=== PATIENT | male | born 1990 | race Caucasian/White ===

== ENCOUNTER 2020-05-30 19:03 | Outpatient (CLI) | payer MEDICAID | END 2020-05-30 19:04 | disposition EMS.NT | LOC: EMS 19:03 | DX: Z03.89 Encounter for observation for other suspected diseases and conditions ruled out (principal) ==

== ENCOUNTER 2021-07-18 01:20 | Emergency (ER) | payer MEDICAID ==
[2021-07-18] MEDS ORDERED: KETOROLAC 60 MG/2 ML VIAL IM STA (01:32)
--- NOTE | 2021-07-18 01:40 | ED Physician Documentation ---
History of Present Illness - Stated complaint Stated Complaint: LOW BACK PX - Chief complaint Chief Complaint: Back Pain - History obtained from History obtained from: Patient - Additonal information Additional information: The patient comes to the emergency department chief complaint of right low back pain that started yesterday. He states that he did not have an injury and has never had pain like this before, though he did tell nursing staff he has a history of kidney stones. Patient denies any hematuria. No fevers or dysuria. He states that it hurts more when he stands up. He rates his pain a 4 out of 10. Nothing really seems to make it better. 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 Review of Systems Ten Systems: 10 systems reviewed and negative Constitutional: reports: Reviewed and negative Eyes: reports: Reviewed and negative Ears: reports: Reviewed and negative Nose: reports: Reviewed and negative Throat: reports: Reviewed and negative Cardiac: reports: Reviewed and negative Respiratory: reports: Reviewed and negative GI: reports: Reviewed and negative : reports: Reviewed and negative Skin: reports: Reviewed and negative Musculoskeletal: reports: Back pain Neurologic: reports: Reviewed and negative Psychiatric: reports: Reviewed and negative Endocrine: reports: Reviewed and negative Immunocompromised: reports: Reviewed and negative PD PAST MEDICAL HISTORY - Past Surgical History Past Surgical History: Yes General: Cholecystectomy - Allergies Allergies/Adverse Reactions: Allergies Allergy/AdvReac Type Severity Reaction Status Date / Time No Known Drug Allergies Allergy Verified 09/11/15 13:25 - Social History Does the pt smoke?: Yes Smoking Status: Current every day smoker Does the pt drink ETOH?: No Does the pt have substance abuse?: Yes - POLST Patient has POLST: No PD ED PE NORMAL - Vitals Vital signs reviewed: Yes - General General: Alert and oriented X 3, No acute distress, Other (The patient is disheveled, but otherwise well-appearing.) - HEENT HEENT: Atraumatic, PERRL, EOMI, Moist mucous membranes - Neck Neck: Supple, no meningeal sign - Cardiac Cardiac: RRR, No murmur, Strong equal pulses - Respiratory Respiratory: No respiratory distress, Clear bilaterally - Abdomen Abdomen: Soft, Non tender, Non distended - Back Back: No CVA TTP, Other (Tender to palpation moderately over right lumbar paraspinal musculature.) - Derm Derm: Warm and dry, Other (Multiple scabs, consistent with picking) - Extremities Extremities: No deformity - Neuro Neuro: Alert and oriented X 3, Other (Grossly intact; patient does not appear under the influence of any drugs at this time.) - Psych Psych: Normal mood, Normal affect Results - Vitals Vitals: Vital Signs - 24 hr 07/18/21 07/18/21 01:27 02:04 Temperature 96.9 C H 36.8 C Heart Rate 99 72 Respiratory 14 18 Rate Blood Pressure 122/86 H 121/67 O2 Saturation 98 100 Oxygen O2 Source Room air PD MEDICAL DECISION MAKING - ED course Complexity details: reviewed results, re-evaluated patient, considered differential, d/w patient ED course: A urinalysis and CT abdomen pelvis without contrast were ordered for the patient; however, he decided he did not want to stay in the emergency department, and walked out.
[2021-07-18 02:06] VITALS: BP 121/67
[2021-07-18 04:25] LABS: BILIRUBIN,URINE NEGATIVE (NEGATIVE); GLUCOSE, URINE (UA) NEGATIVE (NEGATIVE); KETONES,URINE (UA) NEGATIVE (NEGATIVE); LEUKOCYTE ESTERASE, URINE NEGATIVE (NEGATIVE); NITRITE,URINE NEGATIVE (NEGATIVE); OCCULT BLOOD,URINE MODERATE (NEGATIVE); PROTEIN,URINE NEGATIVE (NEGATIVE); UROBILINOGEN,URINE 0.2 (NORMAL) E.U./dL (NORMAL)
[2021-07-18 04:27] LABS: CLARITY,URINE CLEAR (CLEAR)
[2021-07-18 04:30] LABS: BACTERIA,URINE None Seen /HPF (None Seen); CRYSTALS,URINE 11-25 Ca Oxalate /LPF; RBC,URINE 0-5 /HPF (0-5); SQUAMOUS EPITHELIAL CELL,UR RARE Squamous (<= Few); WBC,URINE 0-3 /HPF (0-3)
== END 2021-07-18 01:50 | disposition left against medical advice (07) ==
LOC: ED 01:20
DX: Z53.21 Procedure and treatment not carried out due to patient leaving prior to being seen by health care provider (principal); F17.200 Nicotine dependence, unspecified, uncomplicated
CPT/HCPCS: 81001; 81003; 87086; 96372; 99282; 99283

== ENCOUNTER 2021-11-08 11:49 | Emergency (ER) | payer MEDICAID ==
--- NOTE | 2021-11-08 15:42 | ED Physician Documentation ---
PD HPI HEENT - Stated complaint Stated Complaint: NECK PX RT SIDE - Chief complaint Chief Complaint: Heent - History obtained from History obtained from: Patient - Additional information Additional information: Patient is a 31-year-old male with history of IV drug abuse (reports last use 6 months ago) presenting for evaluation of right-sided neck swelling And pain which been present for 2 to 3 days. Patient reports having poor dentition which is chronic for him. He denies fever, difficulty swallowing, difficulty breathing, chest pain or Abdominal pain.Nothing makes his symptoms better or worse. Review of Systems Constitutional: denies: Fever Nose: denies: Congestion Throat: reports: Dental pain / toothache Cardiac: denies: Chest pain / pressure Respiratory: denies: Dyspnea GI: denies: Abdominal Pain Musculoskeletal: reports: Neck pain. denies: Back pain Neurologic: denies: Headache PD PAST MEDICAL HISTORY - Past Surgical History Past Surgical History: Yes General: Cholecystectomy - Present Medications Home Medications: Ambulatory Orders Medication Instructions Recorded Confirmed Amox/Clav 875/125 [Augmentin] 1 each PO Q12H #20 tablet 11/08/21 - Allergies Allergies/Adverse Reactions: Allergies Allergy/AdvReac Type Severity Reaction Status Date / Time No Known Drug Allergies Allergy Verified 11/08/21 12:03 - Social History Does the pt smoke?: Yes Smoking Status: Current every day smoker Does the pt drink ETOH?: No Does the pt have substance abuse?: Yes - POLST Patient has POLST: No PD ED PE NORMAL - General General: Alert and oriented X 3, No acute distress, Well developed/nourished - HEENT HEENT: Atraumatic, PERRL. No: Dentition benign (Poor dentition with multiple eroded And decayed teeth, no oral swelling, normal speech, uvula is midline) - Neck Neck: Supple, no meningeal sign, Other (Soft tissue swelling to right side of neck, no overlying erythema) - Cardiac Cardiac: RRR, No murmur, Strong equal pulses - Respiratory Respiratory: No respiratory distress, Clear bilaterally - Abdomen Abdomen: Normal bowel sounds, Soft, Non tender, Non distended - Derm Derm: Warm and dry - Neuro Neuro: Normal speech Results - Vitals Vitals: Vital Signs - 24 hr 11/08/21 11/08/21 11/08/21 11:59 15:24 17:56 Temperature 36 C L Heart Rate 109 H 91 92 Respiratory 16 17 16 Rate Blood Pressure 151/83 H 137/84 H 124/76 O2 Saturation 98 100 99 Oxygen O2 Source Room air - Labs Labs: Laboratory Tests 11/08/21 11/08/21 15:45 15:45 WBC 10.2 RBC 4.61 L Hgb 12.9 L Hct 38.9 L MCV 84.4 MCH 28.0 MCHC 33.2 RDW 14.0 Plt Count 320 MPV 8.1 Neut # (Auto) 7.2 H Lymph # (Auto) 1.8 Lander # (Auto) 1.0 Eos # (Auto) 0.2 Baso # (Auto) 0.0 Absolute Nucleated RBC 0.00 Nucleated RBC % 0.0 Sodium 134 L Potassium 3.8 Chloride 99 L Carbon Dioxide 26 Anion Gap 9.0 BUN 9 Creatinine 1.1 Estimated GFR (MDRD) 78 L Glucose 100 Calcium 8.8 PD MEDICAL DECISION MAKING - ED course Complexity details: reviewed results, re-evaluated patient ED course: Pt with R sided neck swelling. No oral swelling or signs of airway compromise. VSS. Labs reassuring. No limited ROM to neck based on swelling. CT reviewed with OMFS. Plan for PO antibiotics and close outpatient follow up. Reviewed these recommendations with pt and he agrees to follow up with Dr. Luis and is aware of concerning symptoms to return for. 1706 - D/W Dr. Luis Who reviewed the CT scan. Agrees with plan for Unasyn and Decadron here. Recommends continuing with Augmentin and would like to see the patient in his office in the next 1 to 2 days. Does not feel this needs drainage at this time or admission given normals labs and no signs of airway compromise. Departure - Departure Disposition: 01 Home, Self Care Clinical Impression: Neck abscess Condition: Stable Follow-Up: Ethan Luis DDS [Provider Admit Priv/Credential] - Prescriptions: Amox/Clav 875/125 [Augmentin] 1 each PO Q12H #20 tablet Comments: The swelling to the right side of your neck appears to be an abscess. Your vital signs and labs were normal. A CT scan was done to better visualize the area of the swelling. I have spoken to one of our oral maxillofacial surgeons, Dr. Luis. Who recommends continuing you on oral antibiotics called Augmentin. He would like to see you in his office tomorrow or at the very latest the following day.I have sent your prescription for the antibiotic to [facility] in [place]. If you have any worsening symptoms please return to the emergency department immediately. Discharge Date/Time: 11/08/21 17:57
[2021-11-08 15:50] LABS: BASOPHILS % (AUTO) 0.3 %; EOSINOPHILS # (AUTO) 0.2 10^3/uL (0.0-0.7); EOSINOPHILS % (AUTO) 1.5 %; HCT - HEMATOCRIT 38.9 % (42.0-52.0); HGB - HEMOGLOBIN 12.9 g/dL (14.0-18.0); LYMPHOCYTES # (AUTO) 1.8 10^3/uL (1.5-3.5); LYMPHOCYTES % (AUTO) 17.5 %; MEAN CORPUSCULAR HGB CONC 33.2 g/dL (32.0-36.0); MEAN CORPUSCULAR VOLUME 84.4 fL (80.0-94.0); MEAN PLATELET VOLUME 8.1 fL (7.4-11.4); MONOCYTES % (AUTO) 10.2 %; NEUTROPHILS # (AUTO) 7.2 10^3/uL (1.5-6.6); NEUTROPHILS % (AUTO) 69.9 %; PLT - PLATELET COUNT 320 10^3/uL (130-450); RED BLOOD COUNT 4.61 10^6/uL (4.70-6.10); WHITE BLOOD COUNT 10.2 x10^3/uL (4.8-10.8)
[2021-11-08 16:01] LABS: CALCIUM 8.8 mg/dL (8.5-10.3); CREATININE 1.1 mg/dL (0.6-1.2); POTASSIUM 3.8 mmol/L (3.5-5.0)
[2021-11-08] MEDS ORDERED: AMPICILLIN/SULBACTAM 3 GM in SODIUM CHLORIDE 0.9% MINIBAG 100 ML IV STA (16:52)
[2021-11-08] MEDS ORDERED: DEXAMETHASONE 10 MG/ML VIAL IVP STA (16:53)
--- NOTE | 2021-11-08 17:33 | CT Report ---
PROCEDURE: CT neck with contrast INDICATIONS: R sided soft tissue swelling CONTRAST: IV CONTRAST: Optiray 320 ml: 100 PO CONTRAST: *NO PO CONTRAST TECHNIQUE: After the administration of intravenous contrast, 3.0 mm axial sections acquired from the sella to th e aortic arch. 3 mm thick coronal reformats were generated. For radiation dose reduction, the follo wing was used: automated exposure control, adjustment of mA and/or kV according to patient size. COMPARISON: None. FINDINGS: Image quality: Excellent. Lymph nodes: Bilateral level 2 and level 3 bulky adenopathy. On the right, there is a level 3 node wi th internal necrosis measuring overall 2.5 cm also shows surrounding inflammatory change Vessels: Visualized vasculature appears patent. Neck spaces: The oropharynx, nasopharynx, and pharynx demonstrate no mucosal lesions. The vocal cor ds, false vocal cords, pyriform sinuses, epiglottis, vallecula, and tongue base all appear normal. E xtramucosal spaces appear unremarkable. Glands: The parotid and submandibular glands appear normal. The thyroid is normal in size and there are no incidental findings. Miscellaneous: Visualized brain and orbits appear normal. Lung apices appear clear. Superficial so ft tissues appear normal. Bones: No suspicious bony lesions. Visualized sinuses and mastoids appear unremarkable. IMPRESSION: Bulky bilateral deep cervical adenopathy. Level 3 node on the right with internal necrosis and surrou nding inflammatory change suggests suppurative adenitis. Reviewed by: Demarco Andrea MD on 11/08/2021 4:32 PM [facility] Approved by: Demarco Andrea MD on 11/08/2021 4:32 PM [facility] Station ID: [id number]
[2021-11-08 17:57] VITALS: BP 124/76
== END 2021-11-08 17:57 | disposition home or self-care (01) ==
LOC: ED 11:49
DX: L02.11 Cutaneous abscess of neck (principal)
CPT/HCPCS: 36415; 70491; 80048; 85025; 96365; 96375; 99282; 99284; Q9967

== ENCOUNTER 2023-08-19 10:55 | Outpatient (CLI) | payer MEDICAID | END 2023-08-19 23:59 | disposition EMS.NT | LOC: EMS 10:55 | DX: Z04.6 Encounter for general psychiatric examination, requested by authority (principal); R00.0 Tachycardia, unspecified; R45.1 Restlessness and agitation ==

== ENCOUNTER 2023-09-05 15:36 | Outpatient (CLI) | payer OTHER, MEDICAID ==
[2023-09-05 22:04] LABS: CHLAMYDIA TRACHOMATIS DNA NEGATIVE (NEGATIVE); NEISSERIA GONORRHOEAE DNA NEGATIVE (NEGATIVE); TRICHOMONAS VAGINALIS DNA NEGATIVE (NEGATIVE)
== END 2023-09-05 15:37 | disposition home or self-care (01) ==
LOC: LAB.R 15:36
PROVIDERS: ATTEND Registered Nurse
DX: A56.8 Sexually transmitted chlamydial infection of other sites (principal); A59.00 Urogenital trichomoniasis, unspecified
CPT/HCPCS: 87086; 87491; 87591; 87661